=== PATIENT | female | born 1990 | race Two or more races ===

== ENCOUNTER 2016-11-05 11:58 | Day surgery (SDC) | payer BC ==
[~2016-11-05] VITALS: Ht 162.6 cm; Wt 52.2 kg
[~2016-11-05 11:58] MED LIST: ADVIL,NUPRIN,M200 MG PO; ENDOCET 5-3251 EACH PO; IBUPROFEN800 MG PO; PRENATAL TABLE1 EAC3 PO; ZOLOFT100 MG PO
[2016-11-05 12:44] LABS: BASOPHIL COUNT 0.1 K/uL (0-0.1); EOSINOPHIL (%) 0.8 % (0-5); EOSINOPHIL COUNT 0.1 K/uL (0-0.3); HEMATOCRIT 36.6 % (36.0-46.0); IMMATURE GRANULOCYTE (%) 0.3 % (0.0-0.7); INSTRUMENT ABS NEUTROPHIL CT 6.2 K/uL; MCH 29.1 PG (29.0-34.0); MCHC 34.7 G/DL (30.0-36.0); MCV 83.9 FL (83-99); MEAN PLAT.VOLUME 10.2 uM^3 (9.5-12.4); MONOCYTE (%) 7.4 % (3-12); MONOCYTE COUNT 0.7 K/uL (0-0.8); NEUTROPHIL (%) 68.3 % (45-76); NEUTROPHIL COUNT 6.2 K/uL (1.8-6.4); PLATELET COUNT 266 K/uL (156-360); RBC DIS.WIDTH-CV 12.3 % (11.8-14.6); RBC DIS.WIDTH-SD 37.3 % (39-53); RED BLOOD COUNT 4.36 M/uL (3.80-5.20)
[2016-11-05 13:08] VITALS: BP 120/80
[2016-11-05] MEDS ORDERED: MOTRIN800 MG PO (13:12)
[2016-11-05] MEDS ORDERED: VICODIN 5-3001 EACH PO (13:12)
[2016-11-05 15:30] VITALS: BP 122/73
[2016-11-05 16:24] VITALS: BP 108/68
== END 2016-11-05 16:35 | disposition home or self-care (01) ==
LOC: SDC 11:58
PROVIDERS: Obstetrics & Gynecology
PROC: 10D17ZZ Extraction of Products of Conception, Retained, Via Natural or Artificial Opening (ICD-10-PCS; principal; 2016-11-05)
DX: O02.1 Missed abortion (principal); N85.4 Malposition of uterus
CPT/HCPCS: 85025; 86850; 86900; 86901; 88305; J1100; J1885; J2175; J2405; J3010

== ENCOUNTER 2017-08-25 09:23 | Outpatient (CLI) | payer BC ==
[~2017-08-25 09:23] MED LIST changes: +MOTRIN800 MG PO; +VICODIN 5-3001 EACH PO
[2017-08-25 09:39] VITALS: BP 123/70
== END 2017-08-25 11:25 | disposition home or self-care (01) ==
LOC: LDRP-OP 09:23 → 2WEST 09:24 → LDRP-OP 11-29 12:23
DX: O9A.213 Injury, poisoning and certain other consequences of external causes complicating pregnancy, third trimester (principal); W19.XXXA Unspecified fall, initial encounter; O99.343 Other mental disorders complicating pregnancy, third trimester; F41.9 Anxiety disorder, unspecified; Z3A.35 35 weeks gestation of pregnancy
CPT/HCPCS: 59025; G0378

== ENCOUNTER 2017-09-22 21:54 | Inpatient (IN) | payer BC ==
[~2017-09-22] VITALS: Ht 162.6 cm; Wt 67.1 kg
[2017-09-22 22:11] VITALS: BP 133/79
[2017-09-22 23:10] VITALS: BP 136/83
[2017-09-22 23:24] LABS: BASOPHIL (%) 0.3 % (0-1); EOSINOPHIL (%) 0.6 % (0-5); EOSINOPHIL COUNT 0.1 K/uL (0-0.3); HEMATOCRIT 34.8 % (36.0-46.0); HEMOGLOBIN 12.5 G/DL (11.9-15.5); IMMATURE GRANULOCYTE (%) 0.7 % (0.0-0.7); LYMPHOCYTE (%) 26.5 % (15-42); LYMPHOCYTE COUNT 2.9 K/uL (1.0-2.8); MCH 30.6 PG (29.0-34.0); MCHC 35.9 G/DL (30.0-36.0); MCV 85.3 FL (83-99); MONOCYTE (%) 7.7 % (3-12); MONOCYTE COUNT 0.9 K/uL (0-0.8); NEUTROPHIL (%) 64.2 % (45-76); NEUTROPHIL COUNT 7.1 K/uL (1.8-6.4); PLATELET COUNT 186 K/uL (156-360); RBC DIS.WIDTH-CV 12.9 % (11.8-14.6); RBC DIS.WIDTH-SD 39.6 % (39-53); RED BLOOD COUNT 4.08 M/uL (3.80-5.20)
[2017-09-22 23:58] VITALS: BP 130/77
[2017-09-23] VITALS (16 sets, daily range): BP systolic 114–132; BP diastolic 60–82
[2017-09-23] MEDS ORDERED: IRON325 M1 PO (01:59)
[2017-09-23] MEDS ORDERED: MOTRIN800 MG PO (05:50)
[2017-09-24 07:20] VITALS: BP 107/62
== END 2017-09-24 14:15 | disposition home or self-care (01) | DRG 775 ==
LOC: LDRP-OP 21:54 → 2WEST 21:56 → LDRP-OP 10-30 11:41
PROVIDERS: Midwife
DX: O70.0 First degree perineal laceration during delivery (principal); O99.02 Anemia complicating childbirth; D64.9 Anemia, unspecified; O99.354 Diseases of the nervous system complicating childbirth; G43.909 Migraine, unspecified, not intractable, without status migrainosus; O99.344 Other mental disorders complicating childbirth; F41.9 Anxiety disorder, unspecified; Z88.0 Allergy status to penicillin; Z88.2 Allergy status to sulfonamides; Z3A.39 39 weeks gestation of pregnancy; Z37.0 Single live birth
CPT/HCPCS: 85025; C1755; G0378; J7120